=== PATIENT | male | born 1990 | race Caucasian/White ===

== ENCOUNTER → 2024-08-16 08:40 | Outpatient (BNVA) | payer SELFPAY | PROVIDERS: Family Provider Nurse Practitioner Family; PCP Nurse Practitioner Family; Visit Provider Nurse Practitioner Family | DX: Z13.6 Encounter for screening for cardiovascular disorders (principal); R31.9 Hematuria, unspecified; Z79.899 Other long term (current) drug therapy | CPT/HCPCS: 74018; 80053; 80061; 81003; 83036; 84443; 85025; 87086 ==